=== PATIENT | female | born 1995 | race Caucasian/White ===

== ENCOUNTER → 2020-11-28 | Outpatient (CLI) | payer BC | LOC: KOH-I 12:26 | DX: R05.9 Cough, unspecified (principal) | CPT/HCPCS: 71046 ==

== ENCOUNTER → 2021-03-29 | Outpatient (CLI) | payer BC ==
[~2021-03-29] VITALS: Ht 160 cm; Wt 145.1 kg
== END ==
LOC: EROP 12:05
DX: U07.1 COVID-19 (principal); J45.909 Unspecified asthma, uncomplicated; Z23 Encounter for immunization
CPT/HCPCS: M0247; Q0247